=== PATIENT | female | born 1940 | race Caucasian/White ===

== ENCOUNTER → 2019-06-25 | Outpatient (CLI) | payer OTHER | LOC: SJCVCIMAG 13:35 | DX: I72.3 Aneurysm of iliac artery (principal); I73.9 Peripheral vascular disease, unspecified ==

== ENCOUNTER → 2019-06-26 | Outpatient (CLI) | payer OTHER | LOC: SJCVC 09:26 → SJCVCIMAG 09:26 | DX: I44.0 Atrioventricular block, first degree (principal); I21.09 ST elevation (STEMI) myocardial infarction involving other coronary artery of anterior wall; R94.31 Abnormal electrocardiogram [ECG] [EKG]; I73.9 Peripheral vascular disease, unspecified; R07.9 Chest pain, unspecified; I10 Essential (primary) hypertension; R06.83 Snoring; E78.5 Hyperlipidemia, unspecified; Z85.038 Personal history of other malignant neoplasm of large intestine ==